=== PATIENT | female | born 1995 | race African-American/Black ===

== ENCOUNTER 2016-08-10 06:25 | Day surgery (SDC) | payer MEDICAID ==
[~2016-08-10 06:25] MED LIST: FEROSUL325 M1 PO; IBUPROFEN800 M1 PO; PRENA1 CHEW TA1.4 M1 PO
[2016-08-10 07:34] LABS: BASO % 0.2 % (0-2); EOSINOPHIL ABSOLUTE COUNT 0.1 tho/cmm (0.0-0.7); HCT-HEMATOCRIT 37.8 % (34.0-49.0); HGB-HEMOGLOBIN 12.5 gm/dl (12.0-15.5); LYMPH % 40.8 % (20-45); LYMPH ABSOLUTE COUNT 2.4 tho/cmm (0.8-4.5); MCH (MEAN CORPUSCULAR HGB) 26.3 pg (28.0-32.0); MCHC MEAN CORPUSCULAR HGB CONC 33.1 % (32.0-36.0); MCV (MEAN CELL VOLUME) 79.4 fl (82.0-96.0); MEAN PLATELET VOLUME 11.3 cmc (9.4-12.4); MONOCYTE ABSOLUTE COUNT 0.7 tho/cmm (0.0-1.2); NEUTROPHIL ABSOLUTE COUNT 2.7 tho/cmm (1.6-8.0); NEUTROPHIL-AUTOMATED 2.7 tho/cmm (1.6-8.0); PLATELET COUNT 178 tho/cmm (150-450); RED BLOOD COUNT 4.76 mil/cmm (4.00-5.20); RED CELL DISTRIBUTION WIDTH 14.2 % (12.4-16.4); WHITE BLOOD COUNT 5.9 tho/cmm (4.0-10.0)
--- NOTE | 2016-08-10 12:16 | NUR ---
CONSULT: 3 MONTHS POST . EXCLUSIVELY . 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 PERIAREOLAR INCISION ON OUTER QUADRANT OF LEFT BREAST WITH LUCY DRAIN IN AXIALLARY AREA. ADVISED TO PUMP/DUMP FOR 12 HOURS POST ANESTHESIA. CLINICAL PETERSON/ULI AFTER BREAST SURGERY INSTRUCTIONS REVIEWED/GIVEN. AND/OR PUMP ON CUE/AT LEAST EVERY 3 HOURS. REPORTS SIGNS OF CLOGGED DUCTS/ENGORGEMENT/MASTITIS TO MD IMMEDIATELY. REFERRED TO [facility] FOR FOLLOW-UP IF NEEDED.
== END 2016-08-10 12:49 ==
LOC: SRG 06:25 → SHSB 06:29 → ORW 08:04 → PACU 08:56 → SHSB 10:15
PROVIDERS: Surgery
PROC: 0HBU0ZX Excision of Left Breast, Open Approach, Diagnostic (ICD-10-PCS; principal; 2016-08-10)
DX: D24.2 Benign neoplasm of left breast (principal); Z79.899 Other long term (current) drug therapy
CPT/HCPCS: J0131; J0690; J1885; J2405; J3010